=== PATIENT | female | born 1955 | race Caucasian/White ===

== ENCOUNTER 2022-11-14 11:47 | Emergency (ER) | payer MEDICARE, OTHER ==
[2022-11-14] VITALS (10 sets, daily range): BP systolic 126–153; BP diastolic 66–83
[~2022-11-14] VITALS: Ht 167.6 cm; Wt 80.8 kg
[2022-11-14] MEDS ORDERED: LEVOTHYROXIN75 MCG PO (13:36)
[2022-11-14] MEDS ORDERED: OMEPRAZOLE DR40 MG PO (13:37)
[2022-11-14] MEDS ORDERED: LOSARTAN POTASS50 MG PO (13:37)
[2022-11-14 14:02] LABS: URINE BILIRUBIN - DIPSTICK NEGATIVE (NEGATIVE); URINE BLOOD DIPSTICK LARGE (NEGATIVE); URINE GLUCOSE - DIPSTICK NEGATIVE (NEGATIVE); URINE KETONE NEGATIVE (NEGATIVE); URINE LEUK ESTERASE NEGATIVE (NEGATIVE); URINE PROTEIN - DIPSTICK 100 mg/dL (NEG-TRACE); URINE SPECIFIC GRAVITY >=1.030; URINE UROBILINOGEN - DIPSTICK 0.2 E.U./dL (0.2)
[2022-11-14 14:05] LABS: URINE COLOR RED; URINE NITRITE - DIPSTICK NEGATIVE (Negative); URINE RBC TNTC RBC/hpf (0-5)
[2022-11-14 16:23] LABS: BASO% 0.2 % (0-3); EOS% 0.1 % (0-8); HEMATOCRIT 45.7 % (37.0-47.0); HEMOGLOBIN 14.3 g/dl (12.0-16.0); IMMATURE GRANULOCYTES 0.2 % (0.0-5.0); LYMPH% 16.4 % (15-41); MEAN CORPUSCULAR HGB 25.7 pG CALC (26.0-32.0); MEAN CORPUSCULAR HGB CONC 31.3 g/dL CAL (32.0-36.0); MONO% 3.9 % (2-13); NEUT% 79.2 % (42-76); RED BLOOD COUNT 5.57 mill/uL (4.20-5.60); RED CELL DISTRI WIDTH 14.4 % (11.5-15.5)
[2022-11-14 16:38] LABS: ALBUMIN 4.5 g/dL (3.2-5.0); ALKALINE PHOSPHATASE 94 u/l (38-126); ANION GAP 12 (6-22 (CALC)); BILIRUBIN, TOTAL 0.5 mg/dL (0.02-1.3); BUN 14 mg/dL (8-23); BUN/CREATININE RATIO 17 (12-20 (CALC)); CARBON DIOXIDE 23 mmol/l (22-30); CHLORIDE 105 mmol/l (95-108); CREATININE 0.8 mg/dL (0.5-1.0); GFR FOR AFR.AMER. > 60 ML/MIN (>=60 (CALC)); GFR OTHER RACES > 60 ML/MIN (>=60 (CALC)); POTASSIUM 4.1 mmol/l (3.5-5.1); PROTHROMBIN TIME 10.2 SECONDS (9.0-12.5); SGOT/AST 29 u/l (9-36); SODIUM 135 mmol/l (137-146); TOTAL PROTEIN 7.5 g/dL (6.3-8.2)
[2022-11-14] MEDS ORDERED: MACROBID100 M1 PO (18:08)
[2022-11-14] MEDS ORDERED: PHENAZOPYRIDIN100 M1 PO (18:08)
== END 2022-11-14 18:34 | disposition home or self-care (01) ==
LOC: ED 11:47
PROVIDERS: Emergency Medicine; Nurse Practitioner
DX: R31.9 Hematuria, unspecified (principal); I10 Essential (primary) hypertension; K21.9 Gastro-esophageal reflux disease without esophagitis; Z90.710 Acquired absence of both cervix and uterus
CPT/HCPCS: Q9967